=== PATIENT | female | born 1990 | race Caucasian/White ===

== ENCOUNTER 2017-08-19 10:49 | Emergency (ER) | payer OTHER ==
[~2017-08-19] VITALS: Ht 177.8 cm; Wt 108.0 kg
[~2017-08-19 10:49] MED LIST: Z.0.BCPILL PO
[2017-08-19 11:04] VITALS: BP 117/77; PULSE 96; RESP 17; TEMP 98.5; O2SAT 97
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
[2017-08-19] MEDS ORDERED: BIRTH CONTROL (11:06)
[2017-08-19] MEDS ORDERED: IBUPROFEN 600 MG TAB PO ONE (11:15)
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
[2017-08-19] MEDS ORDERED: IBUP-232 PO (12:08)
== END 2017-08-19 12:18 | disposition home or self-care (01) ==
LOC: NEPD 10:49
DX: S63.641A Sprain of metacarpophalangeal joint of right thumb, initial encounter (principal); V49.50XA Passenger injured in collision with unspecified motor vehicles in traffic accident, initial encounter
CPT/HCPCS: 71045; 73100; 73140; 99284; L3908